=== PATIENT | female | born 1980 | race Two or more races ===

== ENCOUNTER 2018-07-24 23:17 | Emergency (ER) | payer SELFPAY ==
[~2018-07-24] VITALS: Ht 154.9 cm; Wt 81.6 kg
--- NOTE | 2018-07-25 03:12 | PHYS DOC ---
Adult General Chief Complaint Chief Complaint: ABDOMINAL PAIN HPI HPI Patient is a 37-year-old female who presents with complaint of right upper quadrant abdominal pain that radiates into her back for the last 3 days. Patient rates her pain to be a 10 out of 10. She also indicates the pain radiates down her back and into her right buttock. She admits to some nausea but is had no vomiting or diarrhea. She rates her pain to be a 10 out of 10. Patient states the pain is worsened with palpation. Review of Systems Review of Systems Constitutional: Denies fever or chills [] Respiratory: Denies cough or shortness of breath [] Cardiovascular: No additional information not addressed in HPI [] GI: Complains of abdominal pain with nausea. Denies vomiting or diarrhea [] : Denies dysuria or hematuria [] Musculoskeletal: Complains of right-sided back pain [] Integument: Denies rash or skin lesions [] All other systems were reviewed and found to be within normal limits, except as documented in this note. Current Medications Current Medications Current Medications Medications (Trade) Dose Ordered Sig/Rory Start Time Stop Time Status Last Admin Dose Admin Hydromorphone HCl (Dilaudid) 0.5 mg PRN Q15MIN PRN 07/25/18 03:15 07/26/18 03:14 07/25/18 04:25 0.5 MG Info (CONTRAST GIVEN -- Rx MONITORING) 1 each PRN DAILY PRN 07/25/18 04:15 07/27/18 04:14 Iohexol (Omnipaque 300 Mg/ml) 75 ml 1X ONCE 07/25/18 04:30 07/25/18 04:31 DC 07/25/18 04:11 75 ML Ondansetron HCl (Zofran) 4 mg 1X ONCE 07/25/18 03:30 07/25/18 03:31 DC 07/25/18 03:36 4 MG Sodium Chloride 1,000 ml @ 1,000 mls/hr Q1H 07/25/18 03:30 07/25/18 04:29 DC 07/25/18 03:30 1,000 MLS/HR Allergies Allergies Allergies Coded Allergies Type Severity Reaction Last Updated Verified No Known Drug Allergies 07/25/18 No Physical Exam Physical Exam Constitutional: Well developed, well nourished, in mild distress. [] HENT: Normocephalic, atraumatic, bilateral external ears normal, oropharynx moist, no oral exudates, nose normal. [] Eyes: PERRLA, EOMI, conjunctiva normal, no discharge. [] Neck: Normal range of motion, no tenderness, supple, no stridor. [] Cardiovascular: Regular rate and rhythm[] Lungs & Thorax: Bilateral breath sounds clear to auscultation [] Abdomen: Bowel sounds normal, soft, with moderate right upper quadrant tenderness. [] Skin: Warm, dry, no erythema, no rash. [] Back: Right-sided CVA tenderness. [] Extremities: No tenderness, no cyanosis, no clubbing, ROM intact, no edema. [] Neurologic: Alert and oriented X 3, no focal deficits noted. [] Current Patient Data Vital Signs Vital Signs Date Time Temp Pulse Resp B/P (MAP) Pulse Ox O2 Delivery O2 Flow Rate FiO2 07/25/18 04:25 18 07/25/18 04:19 77 111/55 (73) 99 Room Air 07/25/18 02:50 98.4 98.4 Lab Values Laboratory Tests Test 07/24/18 23:18 07/24/18 23:57 07/25/18 03:30 Urine Collection Type Unknown Urine Color Yellow Urine Clarity Clear Urine pH 5.5 Urine Specific Novice 1.015 Urine Protein Negative mg/dL (NEG-TRACE) Urine Glucose (UA) Negative mg/dL (NEG) Urine Ketones (Stick) Negative mg/dL (NEG) Urine Blood Moderate (NEG) Urine Nitrite Negative (NEG) Urine Bilirubin Negative (NEG) Urine Urobilinogen Dipstick 0.2 mg/dL (0.2 mg/dL) Urine Leukocyte Esterase Moderate (NEG) Urine RBC 11-20 /HPF (0-2) Urine WBC 20-40 /HPF (0-4) Urine Squamous Epithelial Cells Few /LPF Urine Bacteria Many /HPF (0-FEW) Urine Mucus Slight /LPF POC Urine HCG, Qualitative Hcg negative (Negative) White Blood Count 10.0 x10^3/uL (4.0-11.0) Red Blood Count 4.19 x10^6/uL (3.50-5.40) Hemoglobin 12.5 g/dL (12.0-15.5) Hematocrit 37.1 % (36.0-47.0) Mean Corpuscular Volume 89 fL (79-100) Mean Corpuscular Hemoglobin 30 pg (25-35) Mean Corpuscular Hemoglobin Concent 34 g/dL (31-37) Red Cell Distribution Width 13.4 % (11.5-14.5) Platelet Count 230 x10^3/uL (140-400) Neutrophils (%) (Auto) 68 % (31-73) Lymphocytes (%) (Auto) 26 % (24-48) Monocytes (%) (Auto) 5 % (0-9) Eosinophils (%) (Auto) 1 % (0-3) Basophils (%) (Auto) 1 % (0-3) Neutrophils # (Auto) 6.8 x10^3uL (1.8-7.7) Lymphocytes # (Auto) 2.6 x10^3/uL (1.0-4.8) Monocytes # (Auto) 0.5 x10^3/uL (0.0-1.1) Eosinophils # (Auto) 0.1 x10^3/uL (0.0-0.7) Basophils # (Auto) 0.0 x10^3/uL (0.0-0.2) Sodium Level 142 mmol/L (136-145) Potassium Level 3.5 mmol/L (3.5-5.1) Chloride Level 105 mmol/L (98-107) Carbon Dioxide Level 25 mmol/L (21-32) Anion Gap 12 (6-14) Blood Urea Nitrogen 9 mg/dL (7-20) Creatinine 0.7 mg/dL (0.6-1.0) Estimated GFR (Cockcroft-Gault) 94.7 BUN/Creatinine Ratio 13 (6-20) Glucose Level 113 mg/dL (70-99) H Calcium Level 8.7 mg/dL (8.5-10.1) Total Bilirubin 0.4 mg/dL (0.2-1.0) Aspartate Amino Transferase (AST) 19 U/L (15-37) Alanine Aminotransferase (ALT) 22 U/L (14-59) Alkaline Phosphatase 54 U/L (46-116) Total Protein 7.2 g/dL (6.4-8.2) Albumin 3.4 g/dL (3.4-5.0) Albumin/Globulin Ratio 0.9 (1.0-1.7) L Lipase 93 U/L (73-393) Laboratory Tests 07/25/18 03:30 Laboratory Tests 07/25/18 03:30 EKG EKG [] Radiology/Procedures Radiology/Procedures [] Impressions: PROCEDURE: CT ABD PELV W/ IV CONTRST ONLY INDICATION: RUQ abd pain, OMNI 300, 75ml COMPARISON: None. TECHNIQUE: Axial CT images obtained through the abdomen and pelvis with contrast. One or more of the following individualized dose reduction techniques were utilized for this examination: 1. Automated exposure control; 2. Adjustment of the mA and/or kV according to patient size; 3. Use of iterative reconstruction technique. FINDINGS: Abdominal aorta not aneurysmal. The right hemipelvis there is a suspected fat-containing lesion measuring up to 32 mm. No intrahepatic bile duct dilation. No peripancreatic fluid collection. Spleen unremarkable. No left-sided hydronephrosis. Urinary bladder is partially distended. No right-sided hydronephrosis. No definite periappendiceal inflammation. No dilated loops of bowel to suggest obstruction. There is some evidence of degenerative changes the spine with some disc protrusions and early osteophyte formation. Mild prominence of urinary bladder wall but incompletely distended. IMPRESSION: 1. Fat-containing lesion in the right adnexa. Most common cause would be a teratoma. 2. Urinary bladder wall is mildly prominent. Most likely cause is lack of distention unless there is clinical concern for cystitis. Electronically signed by: Kumar Hoyt MD (07/25/2018 4:49 AM) [facility] Course & Med Decision Making Course & Med Decision Making Pertinent Labs and Imaging studies reviewed. (See chart for details) [] Dragon Disclaimer Dragon Disclaimer This electronic medical record was generated, in whole or in part, using a voice recognition dictation system. Departure Departure Impression: Primary Impression: Abdominal pain, right upper quadrant Additional Impression: Low back pain with sciatica Disposition: HOME, SELF-CARE Condition: STABLE Patient Instructions: Abdominal Pain, Sciatica Scripts Orphenadrine Citrate (ORPHENADRINE CITRATE) 100 Mg Tablet.er 1 TAB PO BID PRN for MUSCLE SPASMS, #14 TAB Prov: SHANON HARTLEY Jr. DO 07/25/18 Ondansetron Hcl (ZOFRAN) 4 Mg Tablet 4 MG PO PRN TID PRN for NAUSEA, #15 nausea/vomiting Prov: SHANON HARTLEY Jr. DO 07/25/18 Hydrocodone/Apap 5-325 (NORCO 5-325 TABLET) 1 Each Tablet 1 EACH PO PRN Q6HRS PRN for PAIN, #12 as needed for pain Prov: SHANON HARTLEY Jr. DO 07/25/18 Problem Qualifiers Additional Impression: Low back pain with sciatica Chronicity: acute Back pain laterality: right Sciatica laterality: sciatica of right side Qualified Codes: M54.41 - Lumbago with sciatica, right side SHANON HARTLEY Jr. DO Jul 25, 2018 03:12
[2018-07-25 03:29] LABS: BILIRUBIN,URINE NEGATIVE (NEG); CLARITY,URINE CLEAR; COLOR,URINE YELLOW; NITRITE,URINE NEGATIVE (NEG); PH,URINE 5.5; PROTEIN,URINE NEGATIVE (NEG-TRACE); UROBILINOGEN,URINE 0.2 mg/dL (0.2 mg/dL)
[2018-07-25] MEDS ORDERED: ONDANSETRON PF 4 MG/2 ML VIAL. IV ONE (03:30)
[2018-07-25] MEDS ORDERED: IV NORMAL SALINE 1000ML BAG 1,000 ML IV SCH (03:30)
[2018-07-25 03:34] LABS: BACTERIA,URINE MANY /HPF (0-FEW); SQUAMOUS EPITHELIAL CELL,UR FEW /LPF; WBC,URINE 20-40 /HPF (0-4)
[2018-07-25] MEDS: HYDROmorphone 2 MG/ML VIAL IV/SQ PRN ×2 (03:37→04:25)
[2018-07-25 03:40] LABS: BASO % 1 % (0-3); EOS # 0.1 x10^3/uL (0.0-0.7); EOS % 1 % (0-3); HEMATOCRIT 37.1 % (36.0-47.0); HEMOGLOBIN 12.5 g/dL (12.0-15.5); LYMPH # 2.6 x10^3/uL (1.0-4.8); LYMPH % 26 % (24-48); MEAN CORPUSCULAR HEMOGLOBIN 30 pg (25-35); MEAN CORPUSCULAR HGB CONC 34 g/dL (31-37); MEAN CORPUSCULAR VOLUME 89 fL (79-100); MONO # 0.5 x10^3/uL (0.0-1.1); MONO % 5 % (0-9); NEUT # 6.8 x10^3uL (1.8-7.7); NEUT % 68 % (31-73); PLATELET COUNT 230 x10^3/uL (140-400); RED BLOOD COUNT 4.19 x10^6/uL (3.50-5.40); RED CELL DISTRIBUTION WIDTH 13.4 % (11.5-14.5)
[2018-07-25 03:48] LABS: CALCIUM 8.7 mg/dL (8.5-10.1); CREATININE 0.7 mg/dL (0.6-1.0); GFR 94.7; POTASSIUM 3.5 mmol/L (3.5-5.1)
[2018-07-25 03:54] LABS: ALBUMIN 3.4 g/dL (3.4-5.0); ALBUMIN/GLOBULIN RATIO 0.9 (1.0-1.7); TOTAL BILIRUBIN 0.4 mg/dL (0.2-1.0); TOTAL PROTEIN 7.2 g/dL (6.4-8.2)
[2018-07-25] MEDS ORDERED: CONTRAST GIVEN. MC PRN (04:15)
[2018-07-25] MEDS ORDERED: IOHEXOL 300 MG/ML 100ML VIAL. IV ONE (04:30)
--- NOTE | 2018-07-25 04:53 | RAD ---
INDICATION: RUQ abd pain, OMNI 300, 75ml COMPARISON: None. TECHNIQUE: Axial CT images obtained through the abdomen and pelvis with contrast. One or more of the following individualized dose reduction techniques were utilized for this examination: 1. Automated exposure control; 2. Adjustment of the mA and/or kV according to patient size; 3. Use of iterative reconstruction technique. FINDINGS: Abdominal aorta not aneurysmal. The right hemipelvis there is a suspected fat-containing lesion measuring up to 32 mm. No intrahepatic bile duct dilation. No peripancreatic fluid collection. Spleen unremarkable. No left-sided hydronephrosis. Urinary bladder is partially distended. No right-sided hydronephrosis. No definite periappendiceal inflammation. No dilated loops of bowel to suggest obstruction. There is some evidence of degenerative changes the spine with some disc protrusions and early osteophyte formation. Mild prominence of urinary bladder wall but incompletely distended. IMPRESSION: 1. Fat-containing lesion in the right adnexa. Most common cause would be a teratoma. 2. Urinary bladder wall is mildly prominent. Most likely cause is lack of distention unless there is clinical concern for cystitis. Electronically signed by: Kumar Hoyt MD (07/25/2018 4:49 AM) [facility]
[2018-07-25] MEDS ORDERED: ORPH100T PO (05:27)
[2018-07-25] MEDS ORDERED: ONDA4TAB7 PO (05:27)
[2018-07-25] MEDS ORDERED: HYDR-3164 PO (05:27)
[2018-07-25 05:55] VITALS: BP 99/47
== END 2018-07-25 06:00 | disposition home or self-care (01) ==
LOC: ER 23:17
DX: R10.11 Right upper quadrant pain (principal); M54.41 Lumbago with sciatica, right side
CPT/HCPCS: 36415; 74177; 80053; 81001; 81025; 83690; 85025; 96374; 96375; 96376; 99284; J1170; J2405; J7030; Q9967; 87086; 87186